=== PATIENT | male | born 1995 | race Hispanic/Latino ===

== ENCOUNTER 2021-04-25 16:22 | Outpatient (CLI) | payer OTHER ==
[2021-04-25 20:44] LABS: Anion Gap 15 mmol/L (10-20); BUN (Urea Nitrogen) 23 mg/dL (8.9-20.6); Calc. Creatinine Clearance 0 mL/min (70-130); Calcium 9.6 mg/dL (7.8-10.44); Carbon Dioxide 26 mmol/L (22-29); Chloride 100 mmol/L (98-107); Potassium 4.1 mmol/L (3.5-5.1); Sodium 137 mmol/L (136-145)
[2021-04-25 21:20] LABS: Glucose 52 mg/dL (70-105)
[2021-04-26 00:03] LABS: SARS-CoV-2 PCR by NAA Not Detected (NotDetected)
== END 2021-04-25 16:23 | disposition home or self-care (01) ==
LOC: LABBT 16:22
PROVIDERS: ATTEND Surgery Surgery of the Hand
DX: Z01.812 Encounter for preprocedural laboratory examination (principal); S63.8X2A Sprain of other part of left wrist and hand, initial encounter; Z20.822 Contact with and (suspected) exposure to COVID-19
CPT/HCPCS: 80048; U0003; U0005

== ENCOUNTER 2021-04-30 10:51 | Day surgery (SDC) | payer OTHER ==
[2021-04-27 10:28] VITALS: BMI 28.8
[2021-04-30] MEDS ORDERED: EPINEPHrine 1 MG/ML AMP ONE (12:26)
[2021-04-30] MEDS ORDERED: Bupivacaine PF 0.5% 30 ML VIAL ONE (12:26)
[2021-04-30] MEDS ORDERED: Bacitracin Zinc Ointment 30 gm TUBE ONE (12:26)
[2021-04-30] MEDS ORDERED: Betamet Acet/Betamet Na Ph 30 MG/5 ML VIAL ONE (12:43)
[2021-04-30] MEDS ORDERED: Lidocaine 1% (PF) 30 ML VIAL ONE (12:43)
[2021-04-30 12:49] LABS: Anion Gap 12 mmol/L (10-20); BUN (Urea Nitrogen) 17 mg/dL (8.9-20.6); Calc. Creatinine Clearance 135 mL/min (70-130); Calcium 9.8 mg/dL (7.8-10.44); Carbon Dioxide 27 mmol/L (22-29); Chloride 101 mmol/L (98-107); Glucose 93 mg/dL (70-105); Sodium 136 mmol/L (136-145)
[2021-04-30] MEDS ORDERED: Midazolam HCl 2 mg/2 ml Vial ONE (13:05)
[2021-04-30] MEDS ORDERED: Fentanyl 100 MCG/2 ML VIAL ONE ×2 (13:09→15:24)
[2021-04-30] MEDS ORDERED: PROPOFOL 200 MG/20 ML VIAL ONE (13:20)
[2021-04-30] MEDS ORDERED: Ondansetron PF 4 MG/2 ML Vial ONE (13:20)
[2021-04-30] MEDS ORDERED: Lidocaine 1% PF 5 ML VIAL ONE (13:20)
== END 2021-04-30 16:20 | disposition home or self-care (01) ==
LOC: SDC 10:51
PROVIDERS: ATTEND Surgery Surgery of the Hand
PROC: 0RBP4ZZ Excision of Left Wrist Joint, Percutaneous Endoscopic Approach (ICD-10-PCS; principal; 2021-04-30)
PROC: 3E0U33Z Introduction of Anti-inflammatory into Joints, Percutaneous Approach (ICD-10-PCS; principal; 2021-04-30)
DX: M65.88 Other synovitis and tenosynovitis, other site (principal); M25.531 Pain in right wrist
CPT/HCPCS: 36415; 80048; J0171; J0690; J0702; J2001; J2250; J2405; J2704; J3010; S0020